=== PATIENT | male | born 1990 ===

== ENCOUNTER 2023-01-06 21:21 | Emergency (ER) | payer SELFPAY ==
[2023-01-06 21:24] VITALS: BP 129/81; PULSE 74; RESP 16; TEMP 36.4; O2SAT 99
--- NOTE | 2023-01-06 21:37 | ED.GENADULT ---
HPI - General Adult General Chief complaint: Eye Problems Stated complaint: left eye swelling Time Seen by Provider: 01/06/23 21:36 History of Present Illness HPI narrative: this is a 32-year-old male presenting ED with chief complaint of eye swelling. Patient says he was going to bed when he reached up to touch his eye. When touched it felt like it was swollen. When he looked in the mirror he saw swelling of the conjunctiva. He denies vision changes, eye pain, eye trauma Or flashes or floaters.. He denies any known allergy exposure. He denies hives itching throat swelling. patient has never seen an drain layer. Normal vision Related Data Allergies Allergy/AdvReac Type Severity Reaction Status Date / Time hydrocodone Allergy Unknown irritabilit Verified 10/25/17 21:20 y SOME PAIN MEDICATION Allergy Uncoded 05/13/12 06:21 [facility] Social History Social History (Updated 01/06/23 @ 22:38 by Darnell French MD) Social History: drinks alcohol occasionally, uses marijuana occasionally, denies tobacco or drug use. Exam Narrative: APPEARANCE: No apparent distress. Head: atraumatic. NOSE: Atraumatic NECK: Trachea midline RESPIRATORY: No increased rate of breathing CARDIOVASCULAR: RRR, ABDOMINAL: Non-distended MUSCULOSKELETAl: No obvious deformities NEURO: Alert. Moving 4/4 extremities SKIN:: Warm, dry. Normal color PSYCHIATRIC: Normal affect eye exam: Visual acuity 20/20 and right left, IOP 18 right, 25 left, fluorescein staining not reveal a abrasion or evidence of globe rupture. Patient has chemosis on the left eye on the medial and lateral portion of the sclera. Course Vital Signs Vital signs: Vital Signs Temperature 97.5 F L 01/06/23 21:24 Pulse Rate 74 01/06/23 21:24 Respiratory Rate 16 01/06/23 21:24 Blood Pressure 129/81 01/06/23 21:24 Pulse Oximetry 99 01/06/23 21:24 Oxygen Delivery Room Air 01/06/23 21:24 Temperature 97.5 F L 01/06/23 21:24 Pulse Rate 74 01/06/23 21:24 Respiratory Rate 16 01/06/23 21:24 Blood Pressure 129/81 01/06/23 21:24 Pulse Oximetry 99 01/06/23 21:24 Oxygen Delivery Room Air 01/06/23 21:24 Medical Decision Making [facility] Narrative Medical decision making narrative: -Presentation: 32-year-old male presenting with chemosis of his left conjunctiva. -DDX includes but is not limited to: Allergic reaction, eye irritation -Co-morbidities complicating care: none -Social determinants of health: patient works at the [employer], lives by himself -External Chart Review: none -Hx from independent Sources: mother bedside -Discussion of Management/Consultants: Dr. Chance -drain layer at [facility] -Independent interpretation of studies: IOP elevated and the left eye at 25, normal in the right eye and 18. Fluorescein stain revealed no abrasions or Rodríguez sign. Visual acuity is normal. Dx tests considered but not ordered: CT of the orbits, no concern for globe rupture foreign bodies -Procedures: eye staining, pressure checks, visual acuity -Interventions: Benadryl, ice pack, eye flushing -Shared decision making / Disposition: case was discussed with Dr. Chance from [facility]. We have arranged an outpatient follow-up for tomorrow at 11:00 a.m. The patient can use artificial tears for symptoms. Patient is comfortable with follow-up. -RX Artificial tears. Vital Signs Vital Signs: Vital Signs Temperature 97.5 F L 01/06/23 21:24 Pulse Rate 74 01/06/23 21:24 Respiratory Rate 16 01/06/23 21:24 Blood Pressure 129/81 01/06/23 21:24 Pulse Oximetry 99 01/06/23 21:24 Oxygen Delivery Room Air 01/06/23 21:24 Temperature 97.5 F L 01/06/23 21:24 Pulse Rate 74 01/06/23 21:24 Respiratory Rate 16 01/06/23 21:24 Blood Pressure 129/81 01/06/23 21:24 Pulse Oximetry 99 01/06/23 21:24 Oxygen Delivery Room Air 01/06/23 21:24 Critical Care Time Critical Care Time Critical Care Daniel
[2023-01-06] MEDS: DACRIOSE EYE IRRIGATION 118 ML BOTTLE (22:15)
[2023-01-06] MEDS: TETRACAINE HCL 0.5% OPHTH SOLN 4 ML BTL 1 DROP EACH EYE (22:15)
[2023-01-06] MEDS: FLUORESCEIN SOD 1 MG/STRIP EACH EYE (22:15)
[2023-01-06] MEDS: diphenhydrAMINE HCl CAP 25 MG CAPSULE PO (22:57)
[2023-01-06 23:25] VITALS: BP 134/75; PULSE 51; RESP 16; O2SAT 97
== END 2023-01-06 23:29 | disposition home or self-care (01) ==
PROVIDERS: Emergency Provider Emergency Medicine; PCP Family Medicine
DX: H11.422 Conjunctival edema, left eye (principal)
CPT/HCPCS: 99283; A9270